=== PATIENT | female | born 1990 | race Caucasian/White ===

== ENCOUNTER 2023-03-01 22:20 | Inpatient (IN) ==
[2023-03-01] MEDS ORDERED: Lidocaine 1% VIAL 10 MG/ML 30 ML VIAL INJ PRN (23:23)
[2023-03-01] MEDS ORDERED: Lactated Ringers 1000 ml BAG 1,000 ML IV ONE (23:23)
[2023-03-01] MEDS ORDERED: Buffered Lidocaine 1% SYRIN 1 ml INTRADERM ONE (23:23)
[2023-03-01] MEDS ORDERED: Ondansetron 4 mg VIAL 2 MG/ML 2 ml VIAL IV PRN (23:29)
[2023-03-01] MEDS ORDERED: Calcium Carb (TUMS) 500 mg CHEW TAB PO PRN (23:29)
[2023-03-01] MEDS ORDERED: Dinoprostone 10 MG VAG.SUPP VAGINAL ONE (23:29)
[2023-03-02 00:01] LABS: Urine Benzodiazepine Screen None Detected (None Detect); Urine Cannabinoids Screen None Detected (None Detect); Urine Opiates Screen None Detected (None Detect)
[2023-03-02 01:23] LABS: ABS Basophils 0.1 10^3/uL (0.0-0.1); ABS Neutrophils 14.7 10^3/uL (1.5-7.6); ABS Nucleated RBC 0.03 10^3/ul; Eosinophil % 0.1 %; Hematocrit 33.9 % (35-45); Hemoglobin 11.3 g/dL (11.5-14.3); Lymphocyte % 11.3 %; Mean Corpuscular Hemoglobin 29.3 pg (27-33); Mean Corpuscular Hgb Conc 33.4 g/dL (31-36); Mean Corpuscular Volume 87.6 fL (80-97); Mean Platelet Volume 10.5 fL (7.5-11.2); Nucleated Red Blood Cells % 0.2 %/100WBC (0.0-0.8); Platelet Count 201 10^3/uL (150-450); Red Blood Count 3.87 10^6/uL (3.63-4.92); Red Cell Distribution Width 13.8 % (12-17); White Blood Count 17.9 10^3/uL (3.8-11.8)
[2023-03-02] MEDS ORDERED: OBEPIDURAL (200 ML) 200 ML EPIDURAL ONE (01:36)
[2023-03-02] MEDS ORDERED: Lidocaine 1.5% EPI 1:200,000 30 ML SDV ONE (01:36)
[2023-03-02] MEDS: Lactated Ringers 1000 ml BAG 1,000 ML IV SCH ×2 (02:28→08:31)
[2023-03-02] MEDS ORDERED: Lactated Ringers 1000 ml BAG 1,000 ML IV ONE (02:50)
[2023-03-02] MEDS ORDERED: Phenylephrine 40 mcg/mL 10mL (400mcg) SYRINGE IV PUSH PRN ×2 (02:50)
[2023-03-02] MEDS ORDERED: Famotidine IV 10 MG/ML 2 ml VIAL (20 mg) IV PRN (02:50)
[2023-03-02] MEDS ORDERED: Sodium Citrate/Citric Acid LIQ 15 ML UDC PO PRN (02:50)
[2023-03-02] MEDS ORDERED: Lactated Ringers 1000 ml BAG 500 ML IV PRN ×2 (02:50)
[2023-03-02] MEDS ORDERED: Lactated Ringers 1000 ml BAG 1,000 ML IV SCH ×2 (03:00→17:00)
[2023-03-02] MEDS ORDERED: OBEPIDURAL (200 ML) 200 ML EPIDURAL SCH (03:00)
[2023-03-02 03:17] LABS: Urine Appearance Cloudy; Urine Bilirubin Negative (Negative); Urine Blood Negative (Negative); Urine Color Yellow; Urine Glucose Negative (Negative); Urine Ketones Trace (Negative); Urine Nitrite Negative (Negative); Urine Protein 2+(100 mg/dL) (Negative); Urine Specific Gravity 1.031 (1.002-1.030); Urine Urobilinogen Negative (Negative)
[2023-03-02 03:31] LABS: Urine Bacteria Absent (Absent); Urine Red Blood Cell Trace(0-2/hpf) (Absent); Urine Squamous Epithelial Cell Present (Absent); Urine Transitional Epithelial Present (Absent); Urine White Blood Cell Trace(0-5/hpf) (Absent)
[2023-03-02] MEDS ORDERED: Oxytocin in LR 20,000 MILLI.UNIT/1,000 ML BAG IV SCH (06:15)
[2023-03-02] MEDS ORDERED: Ondansetron 4 mg VIAL 2 MG/ML 2 ml VIAL IV PRN (09:47)
[2023-03-02] MEDS ORDERED: Glycerin ADULT 2.4 gm SUPP PR PRN (16:19)
[2023-03-02] MEDS ORDERED: Dibucaine 1% OINT 28.35 GM TUBE PR PRN (16:19)
[2023-03-02] MEDS ORDERED: Witch Hazel PAD JAR TOPICAL PRN (16:19)
[2023-03-03 08:47] LABS: ABS Lymphocytes 1.8 10^3/uL (1.0-4.8); ABS Neutrophils 12.1 10^3/uL (1.5-7.6); Eosinophil % 0.3 %; Hematocrit 25.5 % (35-45); Hemoglobin 8.7 g/dL (11.5-14.3); Lymphocyte % 11.8 %; Mean Corpuscular Volume 88.2 fL (80-97); Mean Platelet Volume 9.8 fL (7.5-11.2); Platelet Count 142 10^3/uL (150-450); Red Blood Count 2.89 10^6/uL (3.63-4.92); Red Cell Distribution Width 14.1 % (12-17)
[2023-03-04 07:46] VITALS: BP 96/62
[2023-03-04] MEDS ORDERED: Measles, Mumps,Rubella VACC 0.5 ML/VIAL SUBCUT ONE (09:57)
== END 2023-03-04 13:40 | disposition home or self-care (01) | DRG 560 ==
LOC: MCHOBOUT 22:20 → MCHOB 22:50
PROVIDERS: ADMIT Advanced Practice Midwife; ATTEND Registered Nurse